=== PATIENT | male | born 1965 | race African-American/Black ===

== ENCOUNTER 2018-11-25 15:16 | Emergency (ER) | payer MEDICAID ==
[~2018-11-25] VITALS: Ht 170.2 cm; Wt 75.0 kg
[2018-11-25 16:40] VITALS: BP 124/79
== END 2018-11-25 17:30 | disposition left against medical advice (07) ==
LOC: EMS 15:20
DX: M79.641 Pain in right hand (principal); Z53.21 Procedure and treatment not carried out due to patient leaving prior to being seen by health care provider